=== PATIENT | female | born 1980 | race African-American/Black ===

== ENCOUNTER 2016-06-03 22:13 | Emergency (ER) | payer MEDICAID ==
[~2016-06-03] VITALS: Ht 175.3 cm; Wt 93.0 kg
[~2016-06-03 22:13] MED LIST: ALBU18 IN; DIPH25TA26 PO; ESOM40CA39 PO; FLUT250M2 IN; FOLI5CAP PO; HYD500C PO; NORT25CA PO; OXYC30TA50 PO; PROC25SU24 RE; RIZA10TA12 PO; [UNRECOGNIZED DRUG - CODE] XX
[2016-06-04] MEDS ORDERED: HYDROmorphone HCL 2 MG/ML VL ONE (01:09)
[2016-06-04] MEDS ORDERED: ONDANSETRON HCL 4 MG/2 ML VIAL ONE (01:09)
[2016-06-04] MEDS ORDERED: FOLIC ACID 1 MG in D5W 5% 50 ML IV ONE (01:15)
[2016-06-04] MEDS ORDERED: SODIUM CHLORIDE 0.9% 1,000 ML IV ONE (01:15)
[2016-06-04] MEDS ORDERED: HYDROmorphone HCL 2 MG/ML VL IV ONE ×2 (01:15→04:00)
[2016-06-04] MEDS ORDERED: ONDANSETRON HCL 4 MG/2 ML VIAL IV ONE (01:15)
[2016-06-04 01:24] LABS: BUN/Creatinine Ratio 10.2; Calcium 8.3 mg/dL (8.5-10.1); Potassium 3.4 mmol/L (3.5-5.1)
[2016-06-04 01:31] LABS: Basophils # (auto) 0 uL; Basophils % (auto) 0.5 % (0.0-2.0); DEFINITIVE VIEW TRANSMISSION; Eosinophils # (auto) 0 uL; Eosinophils % (auto) 0.5 % (0.0-7.0); Hematocrit 29.1 % (36.0-46.0); Hemoglobin 9.6 g/dL (12.2-16.2); Lymphocytes # (auto) 2.6 uL; Lymphocytes % (auto) 42.7 % (10.0-50.0); Mean Corpuscular Hgb Conc. 32.8 g/dL (32.0-36.0); Mean Corpuscular Volume 112.6 fL (80.0-100.0); Mean Platelet Volume 7.8 fL (7.4-10.4); Monocytes # (auto) 0.9 uL; Monocytes % (auto) 15.3 % (0.0-12.0); Neutrophils # (auto) 2.5 uL; Platelet Count (auto) 243 10^3/uL (140-450); Red Cell Distribution Width 18.8 % (11.6-16.0); SUSPECT VIEW TRANSMISSION; White Blood Cell 6.2 10^3/uL (4.4-10.8)
[2016-06-04 01:35] LABS: Bilirubin, Total 0.8 mg/dL (0.2-1.0); Total Protein 8.2 g/dL (6.4-8.2)
[2016-06-04 02:44] VITALS: BP 105/64
== END 2016-06-04 04:41 | disposition home or self-care (01) ==
LOC: ER 22:16
DX: D57.00 Hb-SS disease with crisis, unspecified (principal); M54.5 Low back pain; J45.909 Unspecified asthma, uncomplicated
CPT/HCPCS: 36415; 80053; 85025; 96361; 96365; 96375; 96376; 99284; J1170; J2405; J7030; J7060

== ENCOUNTER 2021-12-09 15:55 | Emergency (ER) | payer MEDICAID ==
[~2021-12-09] VITALS: Ht 175.3 cm; Wt 89.7 kg
[2021-12-09] MEDS ORDERED: SODIUM CHLORIDE 0.9% 500 ML IV ONE (18:30)
[2021-12-09] MEDS ORDERED: HYDROmorphone HCL 2 MG/ML VL/or syr IV ONE ×3 (18:30→22:00)
[2021-12-09 18:43] LABS: Basophils # (auto) 0.1 10 ^3/uL (0-0.2); Hemoglobin 8.1 g/dL (12.2-16.2)
[2021-12-09 18:45] LABS: Basophils % (auto) 1.3 % (0.0-2.0); Eosinophils # (auto) 0.1 10 ^3/uL (0-0.8); Eosinophils % (auto) 0.6 % (0.0-7.0); Hematocrit 24.5 % (36.0-46.0); Lymphocytes # (auto) 3.1 10 ^3/uL (0.4-5.4); Lymphocytes % (auto) 35.4 % (10.0-50.0); Mean Corpuscular Hemoglobin 35.3 pg (28.0-32.0); Mean Corpuscular Hgb Conc. 32.8 g/dL (32.0-36.0); Mean Corpuscular Volume 107.4 fL (80.0-100.0); Monocytes # (auto) 0.7 10 ^3/uL (0-1.3); Monocytes % (auto) 8.3 % (0.0-12.0); Neutrophils # (auto) 4.7 10 ^3/uL (1.6-8.6); Neutrophils % (auto) 54.4 % (37.0-80.0); Red Blood Cells 2.28 10^6/uL (4.0-5.20); White Blood Cell 8.6 10^3/uL (4.4-10.8)
[2021-12-09 18:46] LABS: Nucleated Red Blood Cells % 3.6 %; Red Cell Distribution Width 20.8 % (11.8-14.3)
[2021-12-09 19:00] LABS: Albumin 3.7 g/dL (3.4-5.0); Calcium 8.3 mg/dL (8.5-10.1); Potassium 3.9 mmol/L (3.5-5.1)
[2021-12-09 19:10] LABS: BUN/Creatinine Ratio 14.3; Total Protein 8.8 g/dL (6.4-8.2)
[2021-12-09] MEDS ORDERED: ONDANSETRON HCL 4 MG/2 ML VIAL IV ONE (20:00)
[2021-12-09] MEDS ORDERED: OXY20CRT PO (22:38)
[2021-12-09 23:00] VITALS: BP 124/73
== END 2021-12-10 00:02 | disposition home or self-care (01) ==
LOC: ER 15:59
DX: D57.00 Hb-SS disease with crisis, unspecified (principal); J45.909 Unspecified asthma, uncomplicated
CPT/HCPCS: 36415; 80053; 85025; 85045; 96361; 96374; 96375; 96376; 99284; J1170; J2405; J7040